=== PATIENT | male | born 1965 | race Caucasian/White ===

== ENCOUNTER 2016-11-24 16:36 | Emergency (ER) | payer OTHER ==
--- NOTE | 2016-11-24 17:25 | UC ---
Lower Extremity/Ankle HPI - HPI Summary HPI Summary: Was at home this afternoon and stepped backward on some rotten floor boards, which gave way. [place] R ankle get forcibly dorsiflexed and landed hard on RLE with hyperextended knee. Did not fall or lose balance, only felt foot go down 6- 8 inches. Hx of sprains in R ankle, no hx of R knee sx or ligament injury. - History of Current Complaint Chief Complaint: UCLowerExtremity Stated Complaint: right ankle/ knee pain post fall Time Seen by Provider: 11/24/16 17:09 Hx Obtained From: Patient Onset/Duration: Sudden Onset Severity Initially: Moderate Severity Currently: Moderate Aggravating Factor(s): Standing, Ambulation Alleviating Factor(s): Rest Able to Bear Weight: Yes - Allergies/Home Medications Allergies/Adverse Reactions: Allergies Allergy/AdvReac Type Severity Reaction Status Date / Time Penicillins Allergy Hives Verified 11/24/16 16:58 pecans Allergy Hives Uncoded 11/24/16 16:58 Home Medications: Home Medications Benazepril HCl [Lotensin] 10 mg PO DAILY 11/24/16 [History Confirmed 11/24/16] Hydrochlorothiazide TAB* [Hydrodiuril TAB*] 25 mg PO DAILY 11/24/16 [History Confirmed 11/24/16] buPROPion SR TAB* [Wellbutrin SR TAB*] 150 mg PO DAILY 11/24/16 [History Confirmed 11/24/16] PMH/Surg Hx/FS Hx/Imm Hx Previously Healthy: Yes - Surgical History Surgical History: Yes Surgery Procedure, Year, and Place: hernia - Family History Known Family History: Positive: Hypertension - Social History Lives: With Family Alcohol Use: None Substance Use Type: None Smoking Status (MU): Light Every Day Tobacco Smoker Type: Cigarettes Amount Used/How Often: 2-3 cigarettes nightly Review of Systems Constitutional: Negative Skin: Negative Eyes: Negative ENT: Negative Respiratory: Negative Cardiovascular: Negative Gastrointestinal: Negative Genitourinary: Negative Motor: Negative Neurovascular: Negative Musculoskeletal: Arthralgia, Decreased ROM Neurological: Negative Psychological: Negative All Other Systems Reviewed And Are Negative: Yes Physical Exam Triage Information Reviewed: Yes Appearance: Well-Appearing, Well-Nourished, Pain Distress - mild with movement Vital Signs: Initial Vital Signs Temp 98.7 F 11/24/16 17:01 Pulse 94 11/24/16 17:01 Resp 16 11/24/16 17:01 BP 138/85 11/24/16 17:01 Pulse Ox 97 11/24/16 17:01 Vital Signs Reviewed: Yes Eye Exam: Normal Eyes: Positive: Conjunctiva Clear ENT Exam: Normal Dental Exam: Normal Neck exam: Normal Neck: Positive: Supple, Nontender, No Lymphadenopathy Respiratory Exam: Normal Respiratory: Positive: Chest non-tender, Lungs clear, Normal breath sounds, No respiratory distress, No accessory muscle use Cardiovascular Exam: Normal Cardiovascular: Positive: RRR, No Murmur Musculoskeletal: Positive: ROM Intact - R knee active/passive ROM 90 - 180deg, R ankle full samish ROM, Other: - diffuse joint tenderness in R knee Neurological Exam: Normal Neurological: Positive: Alert Psychological Exam: Normal Skin Exam: Normal Lower Extremity Course/Dx - Differential Dx/Diagnosis Provider Diagnoses: R knee sprain. R ankle sprain. elevated blood pressure due to pain Discharge - Discharge Plan Condition: Stable Disposition: HOME Patient Education Materials: Knee Sprain (ED), Ankle Sprain (ED) Referrals: Adenike Vázquez MD [Primary Care Provider] - 2 Weeks Additional Instructions: Avoid sports or extra weight-bearing while you are having significant pain. I expect you to get back to normal activities (aside from vigorous exercise) within a week. You can return to softball when you can walk and jog pain-free. Please see your primary care provider for a recheck if you are not back to all normal things (including softball) within 2 weeks.
[2016-11-24 17:53] VITALS: BP 138/85
--- NOTE | 2016-11-24 18:09 | RAD ---
INDICATION: Right knee pain COMPARISON: None TECHNIQUE: AP, lateral, tunnel, and sunrise views were obtained. FINDINGS: There are no acute bony findings. There is mild patellofemoral spurring. Joint spaces are preserved. There is no significant joint effusion.. IMPRESSION: MINOR PATELLOFEMORAL SPURRING. NO ACUTE FINDINGS.
--- NOTE | 2016-11-24 18:13 | RAD ---
INDICATION: Right ankle injury COMPARISON: None TECHNIQUE: AP, lateral, and oblique views were obtained. FINDINGS: There are no acute bony findings. There are rounded ossific densities about both the medial and lateral malleolar likely related to prior injuries. There is mild osteoarthritis about the tibiotalar joint. There are heel spurs. The soft tissues are normal. IMPRESSION: NO ACUTE BONY FINDINGS. MILD OSTEOARTHRITIS. HEEL SPURS.
== END 2016-11-24 18:30 | disposition home or self-care (01) ==
LOC: UCCORT 16:36
DX: S83.91XA Sprain of unspecified site of right knee, initial encounter (principal); S93.401A Sprain of unspecified ligament of right ankle, initial encounter; W13.3XXA Fall through floor, initial encounter; Y93.9 Activity, unspecified; Y92.009 Unspecified place in unspecified non-institutional (private) residence as the place of occurrence of the external cause; Z88.0 Allergy status to penicillin; Z91.018 Allergy to other foods; F17.210 Nicotine dependence, cigarettes, uncomplicated
CPT/HCPCS: 99212; G0463

== ENCOUNTER 2017-06-26 09:32 | Emergency (ER) | payer OTHER ==
--- NOTE | 2017-06-26 11:08 | UC ---
Skin Complaint HPI - HPI Summary HPI Summary: 52 year old male presents with complains of left arm abscess. - History of Current Complaint Time Seen by Provider: 06/26/17 11:08 Stated Complaint: SKIN COMPLAINT LEFT ARMPIT Hx Obtained From: Patient Onset/Duration: Sudden Onset Skin Exposure Onset/Duration: Days Ago Onset Severity: Moderate Current Severity: Moderate - Allergy/Home Medications Allergies/Adverse Reactions: Allergies Allergy/AdvReac Type Severity Reaction Status Date / Time Penicillins Allergy Hives Verified 06/26/17 11:12 pecans Allergy Hives Uncoded 06/26/17 11:12 Home Medications: Home Medications Aspirin Low Dose CHEW TAB* [Aspirin Low Dose TAB*] 81 mg PO DAILY 06/26/17 [ History Confirmed 06/26/17] Esomeprazole Magnesium [Nexium] 40 mg PO DAILY 06/26/17 [History Confirmed 06/26] Review of Systems Constitutional: Negative Skin: Other - left axilla abscess Eyes: Negative ENT: Negative Respiratory: Negative Cardiovascular: Negative Gastrointestinal: Negative Genitourinary: Negative Motor: Negative Neurovascular: Negative Musculoskeletal: Negative Neurological: Negative Psychological: Negative All Other Systems Reviewed And Are Negative: Yes PMH/Surg Hx/FS Hx/Imm Hx Previously Healthy: Yes - Surgical History Surgical History: Yes Surgery Procedure, Year, and Place: hernia - Family History Known Family History: Positive: Hypertension - Social History Alcohol Use: Occasionally Substance Use Type: None Smoking Status (MU): Light Every Day Tobacco Smoker Type: Cigarettes Amount Used/How Often: 2-3 cigarettes nightly Physical Exam Triage Information Reviewed: Yes Vital Signs Reviewed: Yes Eye Exam: Normal ENT Exam: Normal Dental Exam: Normal Neck exam: Normal Neck: Positive: 1 Respiratory Exam: Normal Cardiovascular Exam: Normal Abdominal Exam: Normal Musculoskeletal Exam: Normal Neurological Exam: Normal Psychological Exam: Normal Skin: Positive: Other - left axilla abscess Course/Dx - Diagnoses Provider Diagnoses: left axilla abscess Discharge - Discharge Plan Condition: Stable Disposition: HOME Prescriptions: Acetaminop/Codeine 30 MG TAB* [Tylenol/Codeine 30 MG TAB*] 1 tab PO Q8H PRN #9 tab MDD 3 PRN Reason: Pain Clindamycin Cap(NF) [Clindamycin Cap 300 mg Cap(NF)] 300 mg PO Q6H #40 cap Mupirocin 2% OINT* [Bactroban 2 % Oint*] 1 applic TOPICAL BID #2 tube Patient Education Materials: Abscess (ED) Referrals: Adenike Vázquez MD [Primary Care Provider] -
[2017-06-26 11:12] VITALS: BP 136/92
--- NOTE | 2017-06-27 08:05 | UC ---
- Progress Note Progress Note: PLEASE CALL THE PT. WITH THE CULTURE RESULTS + MRSA MAY CONT. WITH THE CURRENT MEDS FOLLOW UP WITH HIS PCP IF NOT IMPROVING
== END 2017-06-26 11:45 | disposition home or self-care (01) ==
LOC: UCCORT 09:32
DX: L02.412 Cutaneous abscess of left axilla (principal); B95.62 Methicillin resistant Staphylococcus aureus infection as the cause of diseases classified elsewhere; Z79.82 Long term (current) use of aspirin; Z88.0 Allergy status to penicillin; F17.210 Nicotine dependence, cigarettes, uncomplicated
CPT/HCPCS: 87070; 87077; 87186; 87205; 87640; 87641; 99212; G0463

== ENCOUNTER 2019-07-10 12:01 | Emergency (ER) | payer OTHER ==
[2019-07-10 12:51] VITALS: BP 112/75
--- NOTE | 2019-07-10 13:34 | UC ---
Ear Complaint HPI - HPI Summary HPI Summary: The patient is a 54-year-old male who wears hearing aids who presents here with a 2 day history of left ear fullness and mild pain. He had been swimming before the onset of symptoms. - History of Current Complaint Chief Complaint: UCEar Stated Complaint: EAR PROBLEM Time Seen by Provider: 07/10/19 12:54 Hx Obtained From: Patient Onset/Duration: Sudden Onset, Lasting Days Pain Intensity: 2 Pain Scale Used: 0-10 Numeric Aggravating Factors: Nothing Alleviating Factors: Nothing Associated Signs/Symptoms: Positive: Hearing Loss - Allergies/Home Medications Allergies/Adverse Reactions: Allergies Allergy/AdvReac Type Severity Reaction Status Date / Time latex Allergy Rash Verified 07/10/19 12:52 Penicillins Allergy Hives Verified 07/10/19 12:52 pecans Allergy Hives Uncoded 07/10/19 12:52 Home Medications: Home Medications Pseudoephedrine HCl [Sudafed 12 Hour] 1 tab PO ONCE PRN 07/10/19 [History Confirmed 07/10/19] Tadalafil 1 tab PO DAILY PRN 07/10/19 [History Confirmed 07/10/19] Tamsulosin CAP* [Flomax CAP*] 1 tab PO DAILY 07/10/19 [History Confirmed ] PMH/Surg Hx/FS Hx/Imm Hx Previously Healthy: Yes Endocrine History: Dyslipidemia Cardiovascular History: Hypertension - Surgical History Surgical History: Yes Surgery Procedure, Year, and Place: hernia - Family History Known Family History: Positive: Hypertension - Social History Alcohol Use: Occasionally Substance Use Type: None Smoking Status (MU): Light Every Day Tobacco Smoker Type: Cigarettes Amount Used/How Often: 4-6cigarettes nightly When Did the Patient Quit Smoking/Using Tobacco: 06/26/17 Household Exposure Type: Cigarettes Review of Systems All Other Systems Reviewed And Are Negative: Yes Constitutional: Positive: Negative Skin: Positive: Negative Eyes: Positive: Negative ENT: Positive: Ear Ache Respiratory: Positive: Cough Cardiovascular: Positive: Negative Gastrointestinal: Positive: Negative Genitourinary: Positive: Negative Motor: Positive: Negative Neurovascular: Positive: Negative Musculoskeletal: Positive: Negative Neurological: Positive: Negative Psychological: Positive: Negative Physical Exam Triage Information Reviewed: Yes Appearance: Well-Appearing, No Pain Distress, Well-Nourished Vital Signs: Initial Vital Signs Temp 98.7 F 07/10/19 12:47 Pulse 71 07/10/19 12:47 Resp 18 07/10/19 12:47 BP 112/75 07/10/19 12:47 Pulse Ox 97 07/10/19 12:47 Vital Signs Reviewed: Yes Eyes: Positive: Conjunctiva Clear ENT: Positive: Other - Left TM- part of hearing aid immedded in cerumen. Negative: Hearing grossly normal - bilateral GONZALES, Nasal congestion, Nasal drainage, Tonsillar swelling, Tonsillar exudate, Uvula midline Dental Exam: Normal Neck: Positive: Supple, Nontender, No Lymphadenopathy Respiratory: Positive: Lungs clear, Normal breath sounds, No respiratory distress, No accessory muscle use Cardiovascular: Positive: RRR, No Murmur Abdomen Description: Positive: Nontender Musculoskeletal: Positive: ROM Intact, No Edema Neurological: Positive: Alert Psychological Exam: Normal Skin Exam: Normal Procedures - Procedure Summary Procedure Summary: REMOVAL OF FOREIGN BODY FROM LEFT EAR piece of hearing aid removed atraumatically for left LAC using alligator forcepts Cerumen flushed from ear by me TM visualized and normal Ear Complaint Course/Dx - Differential Dx/Diagnosis Provider Diagnosis: Foreign body in left ear, Left ear impacted cerumen Discharge ED - Sign-Out/Discharge Documenting (check all that apply): Patient Departure All imaging exams completed and their final reports reviewed: No Studies - Discharge Plan Condition: Improved Disposition: HOME Patient Education Materials: Cerumen Impaction (ED), Ear Foreign Body (ED) Referrals: Adenike Vázquez MD [Primary Care Provider] - If Needed - Billing Disposition and Condition Condition: IMPROVED Disposition: Home
== END 2019-07-10 13:42 | disposition home or self-care (01) ==
LOC: UCEAST 12:01
DX: T16.2XXA Foreign body in left ear, initial encounter (principal); X58.XXXA Exposure to other specified factors, initial encounter; Y92.9 Unspecified place or not applicable; H61.22 Impacted cerumen, left ear; R05 Cough; I10 Essential (primary) hypertension; F17.210 Nicotine dependence, cigarettes, uncomplicated; Z97.4 Presence of external hearing-aid; Z91.018 Allergy to other foods; Z88.0 Allergy status to penicillin; Z91.040 Latex allergy status
CPT/HCPCS: 99212; G0463